=== PATIENT | male | born 2000 | race Caucasian/White ===

== ENCOUNTER 2019-03-26 11:21 | Emergency (ER) | payer BC ==
[2019-03-26 11:35] VITALS: BP 113/63; PULSE 84; O2SAT 96
--- NOTE | 2019-03-26 11:44 | ERPHSYRPT ---
- History of Present Illness Time Seen by Provider: 03/26/19 11:25 Source: patient Exam Limitations: no limitations Patient Subjective Stated Complaint: poison pooja to arms, back of neck, and causing bilateral eyes to swell Triage Nursing Assessment: Pt denies pain, swelling in both eyes, vitals wnl, pulses normal Physician History: Works outside - around [place] - constant exposure to poison pooja. Has has similar reaction before - arms rash and face swelling. Allergies/Adverse Reactions: No Known Drug Allergies Allergy (Verified 03/26/19 11:34) - Review of Systems Constitutional: No Symptoms Eyes: No Symptoms Ears, Nose, & Throat: Other (Facial swelling; no shortness of breath) Respiratory: No Symptoms, No Dyspnea, No Stridor, No Wheezing Cardiac: No Symptoms Skin: Rash (Forearms) Neurological: No Symptoms All Other Systems: Reviewed and Negative - Past Medical History Pertinent Past Medical History: No Neurological History: Other (Similar reactions to poison pooja in the past (work exposure)) ENT History: No Pertinent History Cardiac History: No Pertinent History Respiratory History: No Pertinent History Endocrine Medical History: No Pertinent History Musculoskeletal History: No Pertinent History GI Medical History: No Pertinent History History: No Pertinent History Psycho-Social History: No Pertinent History Male Reproductive Disorders: No Pertinent History - Past Surgical History Past Surgical History: No Respiratory: No Pertinent History Gastrointestinal: No Pertinent History - Social History Smoking Status: Former smoker Exposure to second hand smoke: No Drug Use: marijuana Patient Lives Alone: No - Nursing Vital Signs Nursing Vital Signs: Initial Vital Signs Temperature 97.8 F 03/26/19 11:27 Pulse Rate 84 03/26/19 11:27 Blood Pressure 113/63 03/26/19 11:27 O2 Sat by Pulse Oximetry 96 03/26/19 11:27 Pain Scale Pain Intensity 0 - Physical Exam General Appearance: mild distress (only because of rash to arms and discomfort of swelling to face), anxiety Eye Exam: PERRL/EOMI Ears, Nose, Throat Exam: normal ENT inspection, pharynx normal Neck Exam: normal inspection Respiratory Exam: normal breath sounds, lungs clear, airway intact, No respiratory distress Cardiovascular Exam: regular rate/rhythm, normal heart sounds Extremity Exam: normal inspection (Except for rash bilateral forearms) Neurologic Exam: alert, oriented x 3, cooperative Skin Exam: normal color, warm, dry, rash (Rash, linear bilateral arms) SpO2 Interpretation: normal SpO2: 96 O2 Delivery: Room Air - Course Nursing assessment & vital signs reviewed: Yes - Progress Progress Note: 03/26/19 11:55 Discussed prior history of work exposure to poison pooja and history of similar events/facial swelling. Does not believe he had shots for this before - took pills - steroids for a few days. - Departure Departure Disposition: Home Clinical Impression: Allergy to poison pooja Condition: Stable Critical Care Time: No Referrals: Provider,Unknown [Primary Care Provider] - Additional Instructions: Take prednisone (steroid) as prescribed and also may use benadryl for itching and additional control of allergy. Follow up with primary care as needed. Prescriptions: Prednisone 20 mg [Deltasone 20 mg] 40 mg PO DAILY 5 Days #10 tablet
== END 2019-03-26 11:56 | disposition home or self-care (01) ==
LOC: ED 11:21
DX: L23.7 Allergic contact dermatitis due to plants, except food (principal)
CPT/HCPCS: 99283

== ENCOUNTER 2019-04-17 07:28 | Emergency (ER) | payer BC | END 2019-04-17 08:41 | disposition home or self-care (01) | LOC: ED 07:28 ==